=== PATIENT | female | born 1995 | race Caucasian/White ===

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

== ENCOUNTER → 2017-02-09 | Outpatient (CLI) | payer BC ==
[~2017-02-09] MED LIST: VNTHFA/IN INH
--- NOTE | 2017-02-09 11:25 | DIAGNOSTIC IMAGING REPORT ---
CHEST 2 VIEWS ROUTINE CLINICAL HISTORY: Cough. COMPARISON STUDY: Chest radiograph May 11, 2015. FINDINGS: Lung volumes are normal. No pneumothorax or pleural effusion is present. There is suspected mild lingular opacity. Right lung is clear. Cardiomediastinal silhouette is normal. Vascularity is normal. IMPRESSION: Mild lingular opacity. This favors a small area of pneumonia although atelectasis could appear similar. Electronically signed by: Aleks Beasley M.D. 02/09/2017 11:23 AM Dictated Date/Time: 02/09/2017 11:20 AM
== END | disposition home or self-care (01) ==
LOC: C.RADBC 10:40
PROVIDERS: ATTEND Physician Assistant Medical
DX: R05 Cough (principal); R91.8 Other nonspecific abnormal finding of lung field

== ENCOUNTER → 2017-05-19 | Outpatient (CLI) | payer BC, OTHER | END | disposition home or self-care (01) | LOC: C.RDSM 18:21 | PROVIDERS: ATTEND Family Medicine | DX: M79.672 Pain in left foot (principal) ==

== ENCOUNTER → 2017-06-12 | Outpatient (CLI) | payer OTHER | END | disposition home or self-care (01) | LOC: C.RDSM 14:02 | PROVIDERS: ATTEND Family Medicine | DX: M25.572 Pain in left ankle and joints of left foot (principal); M79.672 Pain in left foot ==